=== PATIENT | male | born 1980 | race Caucasian/White ===

== ENCOUNTER → 2017-09-07 | Outpatient (CLI) | payer OTHER | END | disposition home or self-care (01) | LOC: CACL 15:59 | PROVIDERS: ATTEND Family Medicine | DX: M53.3 Sacrococcygeal disorders, not elsewhere classified (principal); M40.50 Lordosis, unspecified, site unspecified; M50.30 Other cervical disc degeneration, unspecified cervical region; M47.892 Other spondylosis, cervical region | CPT/HCPCS: 72050; 72220 ==